=== PATIENT | female | born 1985 | race American Indian/Alaskan Native ===

== ENCOUNTER 2017-10-22 14:58 | Emergency (ER) | payer BC ==
--- OUTSIDE RECORDS SUMMARY | 2017-10-22 15:01 | XMS REPORT ---
:1985 Author Organization [facility] Address [address] [place] [address] Care Team Providers Name Role Phone DR PARISH CERDA I Unavailable Unavailable SHANTANU, DR NACHO Cheung Unavailable Unavailable DR MARIA ELENA THOMAS Unavailable Unavailable JAKE, DR LIVE Unavailable Unavailable DELFINA JESUS Unavailable Unavailable Problems This patient has no known problems. Allergies, Adverse Reactions, Alerts This patient has no known allergies or adverse reactions. Medications This patient has no known medications. Encounters Start End Encounter Admission Attending Care Care Encounter Date/Time Date/Time Type Type Clinicians Facility Department ID 2017-08-27 Inpatient [place]ella [place]ERDA [facility] [id number] 08:00:00 [place] 2017-08-25 2017-08-25 Emergency [place]ACH[place] LOPE[facility] [id number] 18:46:00 20:59:00 2017-07-20 2017-07-20 Outpatient Mariella THOMAS [facility] [id number] 10:33:00 23:59:00 MARIA ELENA 2017-06-15 2017-06-16 Emergency CALOS COELHO [facility] [id number] 21:38:00 00:42:00 2017-05-13 2017-05-13 Emergency E NACHO FOURNIER [facility] [id number] 01:05:00 02:47:00 2017-05-06 2017-05-06 Emergency E EDIN [facility] [id number] 10:57:00 14:35:00 DELFINA Results Test Description Test Time Test Comments Text Results Atomic Results Result Comments T4 FREE 2017-08-25 21:19:00 Test Item Value Reference Range Comments T4 FREE (test code=A91) 1.00 ng/dL 0.76-1.46 THYROID PANEL/SCREEN (TSH)2017-08-25 20:50:00 Test Item Value Reference Range Comments TSH (test code=A57) 5.780 uIU/mL 0.358-3.740 DRUGS OF ABUSE *WW*2017-08-25 19:58:00 Test Item Value Reference Range Comments DRUG SCRN (test code=HDOA) URINE DRUG SCREEN This is an unconfirmed screening result and should not be used for non-medical purposes CANNABINOD (test code=88C) Negative NEGATIVE AMPHETAMINE (test code=84A) Negative NEGATIVE BENZODIAZP (test code=86A) Negative NEGATIVE BARBITURAT (test code=85A) Negative NEGATIVE OPIATES (test code=92B) Negative NEGATIVE COCAINE (test code=87A) Negative NEGATIVE PHENCYCLID (test code=66A) Negative NEGATIVE METHADONE (test code=64A) Negative NEGATIVE DOAH (test code=DOAH) URINE DRUG SCREEN Cut-off values are as follows: ---- Cannabinoids 50 ng/mL Cocaine 300 ng/mL Amphetamines 1000 ng/mL Phencyclidine 25 ng/mL Benzodiazepines 200 ng.mL Methadone 300 ng/mL Barbiturates 200 ng/mL Opiates 2000 ng/mL URINALYSIS WITH MICRO *WW*2017-08-25 19:35:00 Test Item Value Reference Range Comments COLOR (test code=COLU) YELLOW YELLOW CLARITY (test code=CLA) CLEAR CLEAR GLUCOSE UR (test code=UA GLUCOSE) NEGATIVE NEGATIVE BILI UR (test code=BILE) NEGATIVE NEGATIVE KETONES UR (test code=KSENIA) NEGATIVE NEGATIVE SP GRAVITY (test code=SPGR) 1.015 1.005-1.030 PH UR (test code=PH) 8.5 4.5-8.0 PROTEIN UR (test code=PU) TRACE NEGATIVE UROBIL UR (test code=UROQ) 0.2 EU/dL 0.2-1.0 NITRITE UR (test code=NITRITE) NEGATIVE NEGATIVE BLOOD UR (test code=UA BLOOD) NEGATIVE NEGATIVE LEUK ES UR (test code=LEUK) NEGATIVE NEGATIVE WBC UR (test code=UWBC) 0 /HPF 0-5 RBC UR (test code=URBC) 0 /HPF 0-2 EPITH UR (test code=UEPC) FEW /LPF FEW BACTERIA UR (test code=UBACT) NONE /HPF NONE CAST UR (test code=CAST) /LPF NONE CRYSTAL UR (test code=CRYU) / LPF NONE MUCUS UR (test code=MUC) / HPF NONE AMORPH UR (test code=TORRI) / HPF NONE TRICH UR (test code=UTRICH) /HPF NONE YEAST UR (test code=UY) /HPF NONE SPERM UR (test code=USPERM) /HPF NONE CBC (INCLUDES AUTOMATED DIFFERENTIAL)*[id number] 19:32:00 Test Item Value Reference Range Comments WBC (test code=WBC) 9.2 10\S\3/uL 4.5-11.0 RBC (test code=RBC) 4.04 10\S\6/uL 4.30-5.70 HGB (test code=HBG) 9.9 g/dL 12.0-15.5 HCT (test code=HCT) 30.7 % 35.0-44.0 MCV (test code=MCV) 76.0 fL 81.0-99.0 MCH (test code=MCH) 24.5 pg 27.0-31.0 MCHC (test code=MCHC) 32.2 g/dL 32.0-36.0 RDW (test code=RDW) 14.4 % 11.5-14.5 PLT (test code=PLT) 532 10\S\3/uL 130-400 MPV (test code=MPV) 9.5 fL 9.4-12.4 NEUTROP # (test code=NE#) 5.4 10\S\3/uL 1.6-8.0 LYMPH # (test code=LY#) 2.7 10\S\3/uL 1.1-3.5 MONOCYTE # (test code=MO#) 0.8 10\S\3/uL 0.0-1.1 EOSINOPH # (test code=EO#) 0.1 10\S\3/uL 0.0-0.7 BASOPHIL # (test code=BA#) 0.1 10\S\3/uL 0.0-0.3 IG # (test code=IG#) 0.03 10\S\3/uL 0.00-0.06 NRBC # (test code=NRBC#) 0.00 10\S\3/uL 0.00-0.01 NEUTROPH % (test code=NE%) 59.0 % 35.0-73.0 LYMPH % (test code=LY%) 29.8 % 20.0-55.0 MONO % (test code=MO%) 9.1 % 2.5-10.0 EOSINOPH % (test code=EO%) 0.9 % 0.0-5.0 BASOPHIL % (test code=BA%) 0.9 % 0.0-2.0 IG % (test code=IG%) 0.3 % 0.0-0.8 NRBC% (test code=NRBC%) 0.0 % 0.0-0.2 MANDIFF (test code=WMDIFF) NO NO RBC MORPH (test code=WRBCMOR) NORMAL AMYLASE AND LIPASE 2017-08-25 19:31:00 Test Item Value Reference Range Comments AMYLASE (test code=10A) 49 U/L 28-100 LIPASE (test code=60A) 103 IU/L 73-393 COMPREHENSIVE METABOLIC GARCIA 2017-08-25 19:31:00 Test Item Value Reference Range Comments GLUCOSE (test code=06D) 84 mg/dL 75-100 SODIUM (test code=01A) 139 mmol/L 136-145 POTASSIUM (test code=01B) 3.9 mmol/L 3.6-5.1 CHLORIDE (test code=04A) 106 mmol/L 98-107 CO2 (test code=02A) 27 mmol/L 22-32 ANION GAP (test code=ANG) 10.1 mmol/L BUN (test code=05D) 6 mg/dL 7-18 CREATININE (test code=03E) 0.8 mg/dL 0.4-1.1 BUN/CREA (test code=BCR) 8 12-20 CALCIUM (test code=09D) 8.7 mg/dL 8.3-9.5 BILI TOTAL (test code=11A) 0.3 mg/dL 0.2-1.0 PROTEIN (test code=07D) 8.0 g/dL 6.4-8.2 ALBUMIN (test code=08D) 4.3 g/dL 3.5-4.8 GLOBULIN (test code=GLB) 3.7 g/dL 1.5-3.8 ALB/GLOB (test code=AGRR) 1.2 1.0-2.6 ALK PHOS (test code=35A) 54 IU/L 42-121 AST (test code=30A) 17 IU/L <=42 ALT (test code=31A) 18 IU/L <=78 SERUM MONOCLONAL *WW*2017-08-25 19:29:00 Test Item Value Reference Range Comments PREG SRM (test code=PGS) NEGATIVE NEGATIVE BRAIN NATRIURETIC [id number] 22:57:00 Test Item Value Reference Range Comments proBNP (test code=PBNP) 31 pg/mL 0-125 ALCOHOL BLOOD (ETOH)2017-06-15 22:50:00 Test Item Value Reference Range Comments ETOH (test code=HALC) ETHANOL The result is to be used only for medical purposes ALCOHOL (test code=56A) <10 mg/dL <=10 AMYLASE AND [id number] 22:49:00 Test Item Value Reference Range Comments AMYLASE (test code=10A) 46 U/L 28-100 LIPASE (test code=60A) 100 IU/L 73-393 COMPREHENSIVE METABOLIC [id number] 22:49:00 Test Item Value Reference Range Comments GLUCOSE (test code=06D) 90 mg/dL 75-100 SODIUM (test code=01A) 138 mmol/L 136-145 POTASSIUM (test code=01B) 3.6 mmol/L 3.6-5.1 CHLORIDE (test code=04A) 103 mmol/L 98-107 CO2 (test code=02A) 25 mmol/L 22-32 ANION GAP (test code=ANG) 13.6 mmol/L BUN (test code=05D) 12 mg/dL 7-18 CREATININE (test code=03E) 0.7 mg/dL 0.4-1.1 BUN/CREA (test code=BCR) 18 12-20 CALCIUM (test code=09D) 9.4 mg/dL 8.3-9.5 BILI TOTAL (test code=11A) 0.5 mg/dL 0.2-1.0 PROTEIN (test code=07D) 8.2 g/dL 6.4-8.2 ALBUMIN (test code=08D) 4.7 g/dL 3.5-4.8 GLOBULIN (test code=GLB) 3.5 g/dL 1.5-3.8 ALB/GLOB (test code=AGRR) 1.3 1.0-2.6 ALK PHOS (test code=35A) 59 IU/L 42-121 AST (test code=30A) 15 IU/L <=42 ALT (test code=31A) 21 IU/L <=78 CARDIAC [id number] 22:46:00 Test Item Value Reference Range Comments TROPONIN I (test code=A84) <0.015 ng/mL 0.000-0.045 CKMB (test code=A49) <1.0 ng/mL <=3.6 CPK (test code=32A) 123 IU/L 26-192 [id number] 22:37:00 Test Item Value Reference Range Comments MAGNESIUM (test code=48A) 2.4 mg/dL 1.8-2.4 SERUM [id number] 22:35:00 Test Item Value Reference Range Comments PREG SRM (test code=PGS) NEGATIVE NEGATIVE DRUGS OF [id number] 22:35:00 Test Item Value Reference Range Comments DRUG SCRN (test code=HDOA) URINE DRUG SCREEN This is an unconfirmed screening result and should not be used for non-medical purposes CANNABINOD (test code=88C) Negative NEGATIVE AMPHETAMINE (test code=84A) Negative NEGATIVE BENZODIAZP (test code=86A) Negative NEGATIVE BARBITURAT (test code=85A) Negative NEGATIVE OPIATES (test code=92B) Negative NEGATIVE COCAINE (test code=87A) Negative NEGATIVE PHENCYCLID (test code=66A) Negative NEGATIVE METHADONE (test code=64A) Negative NEGATIVE DOAH (test code=DOAH) URINE DRUG SCREEN Cut-off values are as follows: ---- Cannabinoids 50 ng/mL Cocaine 300 ng/mL Amphetamines 1000 ng/mL Phencyclidine 25 ng/mL Benzodiazepines 200 ng.mL Methadone 300 ng/mL Barbiturates 200 ng/mL Opiates 2000 ng/mL URINALYSIS WITH [id number] 22:35:00 Test Item Value Reference Range Comments COLOR (test code=COLU) YELLOW YELLOW CLARITY (test code=CLA) CLEAR CLEAR GLUCOSE UR (test code=UA GLUCOSE) NEGATIVE NEGATIVE BILI UR (test code=BILE) NEGATIVE NEGATIVE KETONES UR (test code=KSENIA) NEGATIVE NEGATIVE SP GRAVITY (test code=SPGR) 1.009 1.005-1.030 PH UR (test code=PH) 6.5 4.5-8.0 PROTEIN UR (test code=PU) NEGATIVE NEGATIVE UROBIL UR (test code=UROQ) 0.2 EU/dL 0.2-1.0 NITRITE UR (test code=NITRITE) NEGATIVE NEGATIVE BLOOD UR (test code=UA BLOOD) TRACE NEGATIVE LEUK ES UR (test code=LEUK) NEGATIVE NEGATIVE WBC UR (test code=UWBC) 0 /HPF 0-5 RBC UR (test code=URBC) 1 /HPF 0-2 EPITH UR (test code=UEPC) NONE /LPF FEW BACTERIA UR (test code=UBACT) FEW /HPF NONE CAST UR (test code=CAST) /LPF NONE CRYSTAL UR (test code=CRYU) / LPF NONE MUCUS UR (test code=MUC) / HPF NONE AMORPH UR (test code=TORRI) / HPF NONE TRICH UR (test code=UTRICH) /HPF NONE YEAST UR (test code=UY) /HPF NONE SPERM UR (test code=USPERM) /HPF NONE PRO TIME AND [id number] 22:35:00 Test Item Value Reference Range Comments PT (test code=TT) 12.1 s 9.8-13.6 INR (test code=INR) 1.1 INRH (test code=INRH) SUGGESTED THERAPEUTIC RANGE FOR INR: 2.5 - 3.5 For Patients with Prosthetic Valves or Patients with recurrent Thromboembolic Events 2.0 - 3.0 For Most Other Applications PTT (test code=PTT) 28.1 s 20.2-38.0 PTTH (test code=PTTH) To monitor the effectiveness of heparin, we offer the Anti-Xa (Heparin Assay). It can be used for either unfractionated or LMW Heparin. Order Code is ANTI-XA CBC (INCLUDES AUTOMATED DIFFERENTIAL)2017-06-15 22:26:00 Test Item Value Reference Range Comments WBC (test code=WBC) 11.6 10\S\3/uL 4.5-11.0 RBC (test code=RBC) 4.47 10\S\6/uL 4.30-5.70 HGB (test code=HBG) 12.1 g/dL 12.0-15.5 HCT (test code=HCT) 35.7 % 35.0-44.0 MCV (test code=MCV) 79.9 fL 81.0-99.0 MCH (test code=MCH) 27.1 pg 27.0-31.0 MCHC (test code=MCHC) 33.9 g/dL 32.0-36.0 RDW (test code=RDW) 15.4 % 11.5-14.5 PLT (test code=PLT) 431 10\S\3/uL 130-400 MPV (test code=MPV) 9.9 fL 9.4-12.4 NEUTROP # (test code=NE#) 7.0 10\S\3/uL 1.6-8.0 LYMPH # (test code=LY#) 3.5 10\S\3/uL 1.1-3.5 MONOCYTE # (test code=MO#) 0.9 10\S\3/uL 0.0-1.1 EOSINOPH # (test code=EO#) 0.2 10\S\3/uL 0.0-0.7 BASOPHIL # (test code=BA#) 0.1 10\S\3/uL 0.0-0.3 IG # (test code=IG#) 0.02 10\S\3/uL 0.00-0.06 NRBC # (test code=NRBC#) 0.00 10\S\3/uL 0.00-0.01 NEUTROPH % (test code=NE%) 60.5 % 35.0-73.0 LYMPH % (test code=LY%) 29.7 % 20.0-55.0 MONO % (test code=MO%) 7.7 % 2.5-10.0 EOSINOPH % (test code=EO%) 1.3 % 0.0-5.0 BASOPHIL % (test code=BA%) 0.6 % 0.0-2.0 IG % (test code=IG%) 0.2 % 0.0-0.8 NRBC% (test code=NRBC%) 0.0 % 0.0-0.2 MANDIFF (test code=MDIFF) NO NO RBC MORPH (test code=RBCMOR) NORMAL XR CHEST 1 VIEW [id number] 22:06:05LOCATION: [id number]: 31-year-old female who presents with chest pain.COMMENT: After-hours service at 10:05 p.m.A frontal chest radiograph was obtained at the bedside at 9:49 p.m., andcompared to a prior study of 05/13/17.The lungs are clear and well-aerated. The cardiac silhouette, michael, andmediastinum are within normal limits. The skeleton is intact, and thesurrounding soft tissues are unremarkable. sausage maker leads are present.IMPRESSION:Unremarkable portable examination of the chest.CT PE [id number] 02:29:05CHEST CTA:After hours services performed at 0210 hours. LOCATION: [id number]: Chest pain.COMPARISON: None.TECHNIQUE: Volumetric CT acquisition of the chest after intravenousadministration of 100 mL Omnipaque 350. Axial images were reconstructed. One ormore of the following radiation dose reduction techniques was used: automatedexposure control, adjustment of the mA and/or kV according to patient size,and/or utilization of iterative reconstruction technique.FINDINGS:The central airways are patent.The lungs are clear. There is no pneumothorax.There is no axillary, mediastinal, or hilar lymphadenopathy. The heart andgreat vessels are normal. There is no pulmonary embolism.Visualized portions of the upper abdomen are normal. There is no focal osseousabnormality in the chest.IMPRESSION:No acute disease in the chest. No pulmonary embolism.XR CHEST 1 VIEW [id number] 02:22:59CHEST RADIOGRAPH: After hours services performed at 0201 hours.LOCATION: [id number] : Chest Pain.COMPARISON: None.TECHNIQUE: AP radiograph of the chest.FINDINGS:No focal airspace consolidation or pneumothorax is visualized. Thecardiomediastinal silhouette is normal.IMPRESSION:No acute abnormality inthe chest.COMPREHENSIVE METABOLIC [id number] 01:56:00 Test Item Value Reference Range Comments GLUCOSE (test code=06D) 93 mg/dL 75-100 SODIUM (test code=01A) 140 mmol/L 136-145 POTASSIUM (test code=01B) 3.8 mmol/L 3.6-5.1 CHLORIDE (test code=04A) 107 mmol/L 98-107 CO2 (test code=02A) 24 mmol/L 22-32 ANION GAP (test code=ANG) 12.8 mmol/L BUN (test code=05D) 12 mg/dL 7-18 CREATININE (test code=03E) 0.6 mg/dL 0.4-1.1 BUN/CREA (test code=BCR) 19 12-20 CALCIUM (test code=09D) 9.3 mg/dL 8.3-9.5 BILI TOTAL (test code=11A) 0.3 mg/dL 0.2-1.0 PROTEIN (test code=07D) 7.3 g/dL 6.4-8.2 ALBUMIN (test code=08D) 4.3 g/dL 3.5-4.8 GLOBULIN (test code=GLB) 3.0 g/dL 1.5-3.8 ALB/GLOB (test code=AGRR) 1.4 1.0-2.6 ALK PHOS (test code=35A) 56 IU/L 42-121 AST (test code=30A) 16 IU/L <=42 ALT (test code=31A) 25 IU/L <=78 CARDIAC [id number] 01:51:00 Test Item Value Reference Range Comments TROPONIN I (test code=A84) <0.015 ng/mL 0.000-0.045 CKMB (test code=A49) <1.0 ng/mL <=3.6 CPK (test code=32A) 107 IU/L 26-192 SERUM [id number] 01:45:00 Test Item Value Reference Range Comments PREG SRM (test code=PGS) NEGATIVE NEGATIVE [id number] 01:43:00 Test Item Value Reference Range Comments D-DIMER (test code=DDI) 242 ng/mL D-DU 0-234 D-DIMER COMMENT (test *Level to rule out DVT or PE: code=DDCOM) <235 ng/mL D-DU* PRO TIME AND [id number] 01:43:00 Test Item Value Reference Range Comments PT (test code=TT) 11.4 s 9.8-13.6 INR (test code=INR) 1.0 INRH (test code=INRH) SUGGESTED THERAPEUTIC RANGE FOR INR: 2.5 - 3.5 For Patients with Prosthetic Valves or Patients with recurrent Thromboembolic Events 2.0 - 3.0 For Most Other Applications PTT (test code=PTT) 22.9 s 20.2-38.0 PTTH (test code=PTTH) To monitor the effectiveness of heparin, we offer the Anti-Xa (Heparin Assay). It can be used for either unfractionated or LMW Heparin. Order Code is ANTI-XA CBC (INCLUDES AUTOMATED DIFFERENTIAL)2017-05-13 01:34:00 Test Item Value Reference Range Comments WBC (test code=WBC) 10.5 10\S\3/uL 4.5-11.0 RBC (test code=RBC) 4.56 10\S\6/uL 4.30-5.70 HGB (test code=HBG) 12.1 g/dL 12.0-15.5 HCT (test code=HCT) 35.6 % 35.0-44.0 MCV (test code=MCV) 78.1 fL 81.0-99.0 MCH (test code=MCH) 26.5 pg 27.0-31.0 MCHC (test code=MCHC) 34.0 g/dL 32.0-36.0 RDW (test code=RDW) 19.9 % 11.5-14.5 PLT (test code=PLT) 392 10\S\3/uL 130-400 MPV (test code=MPV) 10.0 fL 9.4-12.4 NEUTROP # (test code=NE#) 5.9 10\S\3/uL 1.6-8.0 LYMPH # (test code=LY#) 3.5 10\S\3/uL 1.1-3.5 MONOCYTE # (test code=MO#) 0.8 10\S\3/uL 0.0-1.1 EOSINOPH # (test code=EO#) 0.1 10\S\3/uL 0.0-0.7 BASOPHIL # (test code=BA#) 0.1 10\S\3/uL 0.0-0.3 IG # (test code=IG#) 0.03 10\S\3/uL 0.00-0.06 NRBC # (test code=NRBC#) 0.00 10\S\3/uL 0.00-0.01 NEUTROPH % (test code=NE%) 56.1 % 35.0-73.0 LYMPH % (test code=LY%) 33.6 % 20.0-55.0 MONO % (test code=MO%) 8.0 % 2.5-10.0 EOSINOPH % (test code=EO%) 1.3 % 0.0-5.0 BASOPHIL % (test code=BA%) 0.7 % 0.0-2.0 IG % (test code=IG%) 0.3 % 0.0-0.8 NRBC% (test code=NRBC%) 0.0 % 0.0-0.2 MANDIFF (test code=MDIFF) NO NO RBC MORPH (test code=RBCMOR) NORMAL URINALYSIS WITH [id number] 12:56:00 Test Item Value Reference Range Comments COLOR (test code=COLU) YELLOW YELLOW CLARITY (test code=CLA) CLEAR CLEAR GLUCOSE UR (test code=UA GLUCOSE) NEGATIVE NEGATIVE BILI UR (test code=BILE) NEGATIVE NEGATIVE KETONES UR (test code=KSENIA) NEGATIVE NEGATIVE SP GRAVITY (test code=SPGR) 1.006 1.005-1.030 PH UR (test code=PH) 6.5 4.5-8.0 PROTEIN UR (test code=PU) NEGATIVE NEGATIVE UROBIL UR (test code=UROQ) 0.2 EU/dL 0.2-1.0 NITRITE UR (test code=NITRITE) NEGATIVE NEGATIVE BLOOD UR (test code=UA BLOOD) TRACE NEGATIVE LEUK ES UR (test code=LEUK) NEGATIVE NEGATIVE WBC UR (test code=UWBC) 0 /HPF 0-5 RBC UR (test code=URBC) 1 /HPF 0-2 EPITH UR (test code=UEPC) FEW /LPF FEW BACTERIA UR (test code=UBACT) NONE /HPF NONE CAST UR (test code=CAST) /LPF NONE CRYSTAL UR (test code=CRYU) / LPF NONE MUCUS UR (test code=MUC) / HPF NONE AMORPH UR (test code=TORRI) / HPF NONE TRICH UR (test code=UTRICH) /HPF NONE YEAST UR (test code=UY) /HPF NONE SPERM UR (test code=USPERM) /HPF NONE COMPREHENSIVE METABOLIC [id number] 12:42:00 Test Item Value Reference Range Comments GLUCOSE (test code=06D) 92 mg/dL 75-100 SODIUM (test code=01A) 139 mmol/L 136-145 POTASSIUM (test code=01B) 3.9 mmol/L 3.6-5.1 CHLORIDE (test code=04A) 106 mmol/L 98-107 CO2 (test code=02A) 25 mmol/L 22-32 ANION GAP (test code=ANG) 11.9 mmol/L BUN (test code=05D) 7 mg/dL 7-18 CREATININE (test code=03E) 0.7 mg/dL 0.4-1.1 BUN/CREA (test code=BCR) 10 12-20 CALCIUM (test code=09D) 9.2 mg/dL 8.3-9.5 BILI TOTAL (test code=11A) 0.3 mg/dL 0.2-1.0 PROTEIN (test code=07D) 8.2 g/dL 6.4-8.2 ALBUMIN (test code=08D) 4.7 g/dL 3.5-4.8 GLOBULIN (test code=GLB) 3.5 g/dL 1.5-3.8 ALB/GLOB (test code=AGRR) 1.3 1.0-2.6 ALK PHOS (test code=35A) 66 IU/L 42-121 AST (test code=30A) 17 IU/L <=42 ALT (test code=31A) 28 IU/L <=78 [id number] 12:40:00 Test Item Value Reference Range Comments D-DIMER (test code=DDI) 227 ng/mL D-DU 0-234 D-DIMER COMMENT (test *Level to rule out DVT or PE: code=DDCOM) <235 ng/mL D-DU* CBC (INCLUDES AUTOMATED DIFFERENTIAL)2017-05-06 12:29:00 Test Item Value Reference Range Comments WBC (test code=WBC) 9.3 10\S\3/uL 4.5-11.0 RBC (test code=RBC) 4.87 10\S\6/uL 4.30-5.70 HGB (test code=HBG) 12.7 g/dL 12.0-15.5 HCT (test code=HCT) 38.3 % 35.0-44.0 MCV (test code=MCV) 78.6 fL 81.0-99.0 MCH (test code=MCH) 26.1 pg 27.0-31.0 MCHC (test code=MCHC) 33.2 g/dL 32.0-36.0 RDW (test code=RDW) 20.8 % 11.5-14.5 PLT (test code=PLT) 408 10\S\3/uL 130-400 MPV (test code=MPV) 10.1 fL 9.4-12.4 NEUTROP # (test code=NE#) 6.9 10\S\3/uL 1.6-8.0 LYMPH # (test code=LY#) 1.7 10\S\3/uL 1.1-3.5 MONOCYTE # (test code=MO#) 0.5 10\S\3/uL 0.0-1.1 EOSINOPH # (test code=EO#) 0.1 10\S\3/uL 0.0-0.7 BASOPHIL # (test code=BA#) 0.1 10\S\3/uL 0.0-0.3 IG # (test code=IG#) 0.02 10\S\3/uL 0.00-0.06 NRBC # (test code=NRBC#) 0.00 10\S\3/uL 0.00-0.01 NEUTROPH % (test code=NE%) 74.4 % 35.0-73.0 LYMPH % (test code=LY%) 18.5 % 20.0-55.0 MONO % (test code=MO%) 5.2 % 2.5-10.0 EOSINOPH % (test code=EO%) 0.8 % 0.0-5.0 BASOPHIL % (test code=BA%) 0.9 % 0.0-2.0 IG % (test code=IG%) 0.2 % 0.0-0.8 NRBC% (test code=NRBC%) 0.0 % 0.0-0.2 MANDIFF (test code=MDIFF) NO NO RBC MORPH (test code=RBCMOR) NORMAL CT HEAD W/O [id number] 11:59:19CT brain without contrast.Location code: [id number] HISTORY: numbness legs COMPARISON: None.TECHNIQUE: Routine unenhanced axial imaging of the brain was performed. Oneor more of the following dose reduction techniques were used: Automatedexposure control, adjustment of the mA and or KV according to patient size,and/or utilization of iterative reconstruction technique. FINDINGS: There is no acute intracranial hemorrhage or extra-axial collection.There is no hydrocephalus, midline shift, or space occupying mass. Real-whitematter differentiation is well preserved with no definite CT evidence of anacute infarct. The cranial vault and skull base are intact. The paranasal sinuses and mastoidaircells are pneumatized and well aerated. IMPRESSION: No acute intracranial abnormality.
[2017-10-22 16:13] LABS: Absolute Lymphocytes (CBC) 1.7 K/uL (0.7-4.9); Absolute Monocytes 0.5 K/uL (0.1-1.3); Absolute Neutrophil 7.6 K/uL (1.8-8.0); Basophils % 0.4 % (0-1.3); Eosinophils % 0.8 % (0-4.4); Hematocrit 36.1 % (36.0-45.0); Lymphocytes % 17.3 % (15.3-44.8); MCH 25.5 pg (27.0-35.0); MCV 79.1 fL (80-100); MPV 8.4 fL (7.6-11.3); Monocytes % 4.9 % (3.3-12.3); RBC Red Blood Cell Count 4.56 M/uL (3.86-4.86)
[2017-10-22 16:24] LABS: Bicarbonate 25 mEq/L (21-31); Glucose Level 107 mg/dL (65-120); Lipase 24 U/L (22-51); Potassium 3.1 mEq/L (3.6-5.0); Sodium Level 139 mEq/L (135-145)
[2017-10-22 16:31] LABS: ALT/SGPT 19 IU/L (10-60); AST/SGOT 22 IU/L (10-42); Albumin 4.7 g/dL (3.2-5.5); Alkaline Phosphatase 49 IU/L (42-121); BUN Blood Urea Nitrogen 8 mg/dL (6-20); Bilirubin Direct 0.1 mg/dL (0-0.2); Bilirubin Total 0.6 mg/dL (0.3-1.2); Creatine Phosphokinase 128 IU/L (22-269); Protein, Total 7.8 g/dL (6.0-8.3)
[2017-10-22] MEDS ORDERED: NS KCL 20MEQ 1,000 ML IV ONE (16:45)
[2017-10-22 17:03] LABS: Anisocytosis 2+; Blood Morphology Comment NOTED (NOT SEEN); Platelet Estimate ADEQ; Urine White Blood Cell Casts OK
--- NOTE | 2017-10-22 17:42 | ER ---
Nurse's Notes [facility] Name: Jasmin Hill Age: 32 yrs Sex: Female : 1985 Arrival Date: 10/22/2017 Time: 15:02 Bed 28 Private MD: None, None Diagnosis: Hypokalemia;Tachycardia, unspecified Presentation: 10/22 15:11 Presenting complaint: Patient states: " I feel like my heart is racing and I'm feeling ph nauseous." Pt denies V/D, chest pain or SOB, HR 106 in triage. Transition of care: patient was not received from another setting of care. Onset of symptoms was October 22, 2017. Risk Assessment: Do you want to hurt yourself or someone else? Patient reports no desire to harm self or others. Initial Sepsis Screen: Does the patient meet any 2 criteria? No. Patient's initial sepsis screen is negative. Does the patient have a suspected source of infection? No. Patient's initial sepsis screen is negative. Care prior to arrival: None. 15:11 Method Of Arrival: Ambulatory ph 15:11 Acuity: DEON 3 ph Triage Assessment: 18:07 GI:. GI: Reports nausea. 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 - Social history:: Smoking status: Patient/guardian denies using tobacco. - Ebola Screening: : No symptoms or risks identified at this time. Screenin:08 Abuse screen: Denies threats or abuse. Nutritional screening: No deficits noted. tl3 Tuberculosis screening: No symptoms or risk factors identified. Fall Risk None identified. Assessment: 16:08 General: Appears uncomfortable, well groomed, well developed, well nourished, Behavior tl3 is calm, cooperative, appropriate for age. Pain: Denies pain. Neuro: Level of Consciousness is awake, alert, obeys commands, Oriented to person, place, time, situation, Appropriate for age. Cardiovascular: Heart tones S1 S2 present Patient's skin is warm and dry. Respiratory: Airway is patent Respiratory effort is even, unlabored, Respiratory pattern is regular, symmetrical, Breath sounds are clear bilaterally. GI: No signs and/or symptoms were reported involving the gastrointestinal system. Abdomen is round. : No deficits noted. No signs and/or symptoms were reported regarding the genitourinary system. EENT: No deficits noted. No signs and/or symptoms were reported regarding the EENT system. Derm: No deficits noted. No signs and/or symptoms reported regarding the dermatologic system. Musculoskeletal: No deficits noted. No signs and/or symptoms reported regarding the musculoskeletal system. 16:20 Reassessment: Patient appears in no apparent distress at this time. Patient and/or iw family updated on plan of care and expected duration. Pain level reassessed. Patient is alert, oriented x 3, equal unlabored respirations, skin warm/dry/pink. pt denies CP, states that her HR jumps to 120s when she sits up. 17:37 Reassessment: Patient appears in no apparent distress at this time. No changes from tl3 previously documented assessment. Patient and/or family updated on plan of care and expected duration. Pain level reassessed. Patient is alert, oriented x 3, equal unlabored respirations, skin warm/dry/pink. 17:37 Reassessment: Snow at bedside discussing POC. tl3 18:06 Reassessment: Patient appears in no apparent distress at this time. No changes from tl3 previously documented assessment. Patient and/or family updated on plan of care and expected duration. Pain level reassessed. Patient is alert, oriented x 3, equal unlabored respirations, skin warm/dry/pink. Vital Signs: 15:13 BP 128 / 73; Pulse 114; Resp 20; Temp 98.5; Pulse Ox 98% on R/A; Weight 79.38 kg; ph Height 4 ft. 11 in. (149.86 cm); 16:08 BP 110 / 72; Pulse 99; Resp 18; Pulse Ox 100% ; tl3 17:37 BP 122 / 77; Pulse 87; Resp 18; Pulse Ox 100% ; tl3 18:06 BP 116 / 77; Pulse 92; Resp 18; Pulse Ox 100% ; tl3 15:13 Body Mass Index 35.35 (79.38 kg, 149.86 cm) ph ED Course: 15:02 Patient arrived in ED. mr 15:02 None, None is Private Physician. mr 15:12 Triage completed. ph 15:14 Arm band placed on. ph 15:27 Patient has correct armband on for positive identification. Placed in gown. Bed in low tl3 position. Call light in reach. Side rails up X 1. Adult w/ patient. Pulse ox on. NIBP on. 15:27 Inserted saline lock: 20 gauge in left forearm, using aseptic technique. Blood tl3 collected. 15:38 Snow Lofton FNP-C is [facility]. snw 15:38 Brenton Navarro MD is Attending Physician. snw 15:47 Sakina Toledo, RN is Primary Nurse. iw 16:40 EKG done, by research technologist. reviewed by Snow PRADHAN. sm3 18:06 No provider procedures requiring assistance completed. IV discontinued, intact, tl3 bleeding controlled, No redness/swelling at site. Pressure dressing applied. Administered Medications: 16:46 Drug: NS 0.9% with KCl 20 mEq/L 1000 ml Route: IV; Rate: 250 ml/hr; Site: left iw antecubital; 18:08 Follow up: IV Status: Completed infusion tl3 17:45 Drug: Potassium Chloride 40 mEq Route: PO; tl3 18:08 Follow up: Response: No adverse reaction tl3 Outcome: 17:42 Discharge ordered by . snw 18:06 Discharged to home ambulatory. tl3 18:06 Condition: good 18:06 Discharge instructions given to patient, Instructed on discharge instructions, follow up and referral plans. Demonstrated understanding of instructions, follow-up care, medications. 18:08 Patient left the ED. tl3 Signatures: Snow Lofton FNP-C FNP-Csnw Rivera, Maria mr Williams, Irene, RN RN Tia Marrufo RN RN Tami Han RN RN 3 Jane Vance 3
--- NOTE | 2017-10-22 17:42 | EDPHYS ---
Physician Documentation [facility] Name: Jasmin Hill Age: 32 yrs Sex: Female : 1985 Arrival Date: 10/22/2017 Time: 15:02 Bed 28 Private MD: None, None ED Physician Brenton Navarro HPI: 10/22 16:41 This 32 yrs old Other Female presents to ER via Ambulatory with complaints of snw Dizziness, Palpitations, Nausea. 16:41 The patient presents with generalized weakness, lightheadedness. Onset: The snw symptoms/episode began/occurred suddenly, today. Context: occurred at home, occurred while the patient was standing, just prior to the episode the patient experienced no apparent symptoms. Modifying factors: The symptoms are alleviated by nothing, the symptoms are aggravated by nothing. Severity of symptoms: At their worst the symptoms were moderate severe in the emergency department the symptoms have improved. Patient's baseline: Neuro: alert and fully oriented, Motor: no deficits, Ambulation: walks without assistance, Speech: normal, The patient has a previous history of paroxysmal tachycardia. The patient has experienced similar episodes in the past, multiple times, but today's symptoms are worse, lasting longer. is now seeing cardiology. 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 - Social history:: Smoking status: Patient/guardian denies using tobacco. - Ebola Screening: : No symptoms or risks identified at this time. ROS: 16:40 Eyes: Negative for injury, pain, redness, and discharge, ENT: Negative for injury, snw pain, and discharge, Neck: Negative for injury, pain, and swelling, Cardiovascular: Negative for chest pain and edema, positive for tachycardia Respiratory: Negative for shortness of breath, cough, wheezing, and pleuritic chest pain, Abdomen/GI: Negative for abdominal pain, nausea, vomiting, diarrhea, and constipation, Back: Negative for injury and pain, : Negative for injury, bleeding, discharge, and swelling, MS/Extremity: Negative for injury and deformity, Skin: Negative for injury, rash, and discoloration. 16:40 Constitutional: Positive for fatigue, malaise. 16:40 Neuro: Positive for dizziness, numbness, weakness. Exam: 16:39 Constitutional: This is a well developed, well nourished patient who is awake, alert, snw and in no acute distress. Head/Face: Normocephalic, atraumatic. Eyes: Pupils equal round and reactive to light, extra-ocular motions intact. Lids and lashes normal. Conjunctiva and sclera are non-icteric and not injected. Cornea within normal limits. Periorbital areas with no swelling, redness, or edema. ENT: Nares patent. No nasal discharge, no septal abnormalities noted. Tympanic membranes are normal and external auditory canals are clear. Oropharynx with no redness, swelling, or masses, exudates, or evidence of obstruction, uvula midline. Mucous membranes moist. Neck: Trachea midline, no thyromegaly or masses palpated, and no cervical lymphadenopathy. Supple, full range of motion without nuchal rigidity, or vertebral point tenderness. No Meningismus. Chest/axilla: Normal chest wall appearance and motion. Nontender with no deformity. No lesions are appreciated. Cardiovascular: Tachycardic rate and rhythm with a normal S1 and S2. No gallops, murmurs, or rubs. Normal PMI, no JVD. No pulse deficits. Respiratory: Lungs have equal breath sounds bilaterally, clear to auscultation and percussion. No rales, rhonchi or wheezes noted. No increased work of breathing, no retractions or nasal flaring. Abdomen/GI: Soft, non-tender, with normal bowel sounds. No distension or tympany. No guarding or rebound. No evidence of tenderness throughout. Back: No spinal tenderness. No costovertebral tenderness. Full range of motion. Skin: Warm, dry with normal turgor. Normal color with no rashes, no lesions, and no evidence of cellulitis. MS/ Extremity: Pulses equal, no cyanosis. Neurovascular intact. Full, normal range of motion. Psych: Awake, alert, with orientation to person, place and time. Behavior, mood, and affect are within normal limits. 16:39 Neuro: Orientation: is normal, Mentation: is normal, Memory: appropriate for stated age, Sensation: is normal, seizure activity, is not displayed by the patient. Vital Signs: 15:13 BP 128 / 73; Pulse 114; Resp 20; Temp 98.5; Pulse Ox 98% on R/A; Weight 79.38 kg; ph Height 4 ft. 11 in. (149.86 cm); 16:08 BP 110 / 72; Pulse 99; Resp 18; Pulse Ox 100% ; tl3 17:37 BP 122 / 77; Pulse 87; Resp 18; Pulse Ox 100% ; tl3 18:06 BP 116 / 77; Pulse 92; Resp 18; Pulse Ox 100% ; tl3 15:13 Body Mass Index 35.35 (79.38 kg, 149.86 cm) ph MDM: 16:27 Patient medically screened. snw 17:43 Data reviewed: vital signs, nurses notes. Data interpreted: Pulse oximetry: on room air snw is 100 %. Interpretation: normal. Counseling: I had a detailed discussion with the patient and/or guardian regarding: the historical points, exam findings, and any diagnostic results supporting the discharge/admit diagnosis, lab results, the need for outpatient follow up, to return to the emergency department if symptoms worsen or persist or if there are any questions or concerns that arise at home. Special discussion: Based on the history and exam findings, there is no indication for further emergent testing or inpatient evaluation. I discussed with the patient/guardian the need to see the beach attendant for further evaluation of the symptoms. I discussed with the patient/guardian the need to see the primary care provider for further evaluation of the symptoms. 10/22 15:38 Order name: Basic Metabolic Panel; Complete Time: 16:38 snw 10/22 15:38 Order name: CBC with Diff; Complete Time: 17:14 snw 10/22 15:38 Order name: Hepatic Function; Complete Time: 16:38 snw 10/22 15:38 Order name: Lipase; Complete Time: 16:38 snw 10/22 15:38 Order name: Urine Microscopic Only snw 10/22 15:38 Order name: CPK; Complete Time: 16:38 snw 10/22 15:38 Order name: Urine Test (obtain specimen); Complete Time: 17:09 snw 10/22 15:38 Order name: IV Saline Lock; Complete Time: 16:19 snw 10/22 15:38 Order name: Labs collected and sent; Complete Time: 16:20 snw 10/22 15:38 Order name: Urine Dipstick-Ancillary (obtain specimen); Complete Time: 17:09 [facility] 10/22 16:17 Order name: CBC Smear Scan; Complete Time: 17:14 [facility] 10/22 16:23 Order name: EKG; Complete Time: 16:23 iw 10/22 16:23 Order name: EKG - Nurse/Tech; Complete Time: 16:40 iw Administered Medications: 16:46 Drug: NS 0.9% with KCl 20 mEq/L 1000 ml Route: IV; Rate: 250 ml/hr; Site: left iw antecubital; 18:08 Follow up: IV Status: Completed infusion tl3 17:45 Drug: Potassium Chloride 40 mEq Route: PO; tl3 18:08 Follow up: Response: No adverse reaction tl3 Disposition: 18:52 Co-signature as Attending Physician, Brenton Navarro MD I agree with the assessment and kdr plan of care. Disposition: 10/22/17 17:42 Discharged to Home. Impression: Hypokalemia, Tachycardia, unspecified. - Condition is Stable. - Discharge Instructions: Potassium Content of Foods, Postural Orthostatic Tachycardia Syndrome, Hypokalemia, Rehydration, Adult. - Work release form, Medication Reconciliation Form, Thank You Letter, Antibiotic Education, Prescription Opioid Use form. - Follow up: Private Physician; When: 2 - 3 days; Reason: Recheck today's complaints, Continuance of care, Re-evaluation by your physician. Follow up: Emergency Department; When: As needed; Reason: Worsening of condition. Signatures: Dispatcher [employer] [facility] Brenton Navarro MD MD [facility] Snow Lofton, DIRECTOR WORKERS COMPENSATION-C DIRECTOR WORKERS COMPENSATION-Csnw Sakina Toledo, CLAUDIA TAYLOR Tia Marrufo RN RN Tami Han RN RN tl3 Corrections: (The following items were deleted from the chart) 18:08 17:42 10/22/2017 17:42 Discharged to Home. Impression: Hypokalemia; Tachycardia, tl3 unspecified. Condition is Stable. Discharge Instructions: Potassium Content of Foods, Postural Orthostatic Tachycardia Syndrome, Hypokalemia, Rehydration, Adult. Forms are Work release form, Medication Reconciliation Form, Thank You Letter, Antibiotic Education, Prescription Opioid Use. Follow up: Private Physician; When: 2 - 3 days; Reason: Recheck today's complaints, Continuance of care, Re-evaluation by your physician. Follow up: Emergency Department; When: As needed; Reason: Worsening of condition. w
[2017-10-22] MEDS ORDERED: POTASSIUM CL SA 10 MEQ TAB PO ONE (17:46)
[2017-10-22 18:11] LABS: Urine Bacteria <20 /HPF (<20); Urine RBC <5 /HPF (NONE SEEN)
[2017-10-22 18:12] LABS: Urine Culture Reflex Order NOT NEEDED
[2017-10-22 18:39] LABS: Urine Blood TRACE (NEG); Urine Glucose NEGATIVE (NEG); Urine Protein NEGATIVE (NEG); Urine Specific Gravity 1.015 (1.005-1.030); Urine pH 7.5 (5.0-7.0)
--- NOTE | 2017-10-23 07:56 | EKG ---
Test Date: 2017-10-22 Test Time: 16:34:56 Floor Scraper: ANGELA MEASUREMENT RESULTS: Intervals: Rate: 109 MN: 114 QRSD: 76 QT: 338 QTc: 455 [place]: P: 59 MN: 114 QRS: 24 T: 25 INTERPRETIVE STATEMENTS: Sinus tachycardia Otherwise normal ECG Compared to ECG 07/11/2017 16:06:52 No significant changes Electronically Signed On 10-23-17 07:54:58 CDT by Tanner Glass
== END 2017-10-22 18:08 | disposition home or self-care (01) ==
LOC: ER 14:58
DX: E87.6 Hypokalemia (principal); R00.0 Tachycardia, unspecified; Z88.0 Allergy status to penicillin; Z88.5 Allergy status to narcotic agent
CPT/HCPCS: 36415; 80048; 80076; 81003; 81015; 82550; 83690; 85025; 93005; 96360; 99284